=== PATIENT | female | born 1950 | race Caucasian/White ===

== ENCOUNTER 2017-02-16 12:14 | Emergency (ER) | payer OTHER, SELFPAY ==
[2017-02-16 12:19] VITALS: BMI 30.9
--- NOTE | 2017-02-16 12:50 | ED PDOC ---
HPI: Hypertension/Hypotension Time Seen by Provider: 02/16/17 12:21 Chief Complaint (Nursing): High Blood Pressure History Per: Patient, Radio Repairman ([id number]) Additional Complaint(s): Pt. states for the past 2 days she's had a gradual onset bitemporal headache associated with dizziness which is present only when she walks. Pt. states she feels unsteady on her feet when she ambulates due to the dizziness. Also states she checked her BP after developing symptoms which was 178/90 then she rechecked it the following day and it was 170/70. Pt. states she has been compliant with her BP meds (losartan/HCTZ). Denies chest pain, abdominal pain, fever, head injury, numbness, tingling, other injury. Past Medical History Reviewed: Historical Data, Nursing Documentation, Vital Signs Vital Signs: Last Vital Signs Temp 99.4 F 02/16/17 12:18 Pulse 85 02/16/17 12:18 Resp 18 02/16/17 12:18 BP 165/85 H 02/16/17 12:18 Pulse Ox 96 02/16/17 12:18 - Medical History PMH: Diabetes, HTN - Family History Family History: States: No Known Family Hx - Home Medications Home Medications: Ambulatory Orders Medication Instructions Recorded Meclizine HCl 1 - 2 mg PO Q8 PRN #15 tablet 02/16/17 Metoclopramide [Reglan] 10 mg PO Q8 #15 tab 02/16/17 - Allergies Allergies/Adverse Reactions: Allergies Allergy/AdvReac Type Severity Reaction Status Date / Time No Known Allergies Allergy Verified 11/22/14 09:44 Review of Systems ROS Statement: Except As Marked, All Systems Reviewed And Found Negative Neurological: Positive for: Headache, Dizziness Physical Exam - Reviewed Nursing Documentation Reviewed: Yes Vital Signs Reviewed: Yes - Physical Exam Appears: Positive for: Well, Non-toxic, No Acute Distress Head Exam: Positive for: ATRAUMATIC, NORMAL INSPECTION, NORMOCEPHALIC Skin: Positive for: Normal Color, Warm. Negative for: Rash Eye Exam: Positive for: Normal appearance, EOMI, PERRL. Negative for: Nystagmus ENT: Positive for: Normal ENT Inspection Neck: Positive for: Normal, Painless ROM Cardiovascular/Chest: Positive for: Regular Rate, Rhythm Respiratory: Positive for: CNT, Normal Breath Sounds Gastrointestinal/Abdominal: Positive for: Normal Exam, Bowel Sounds, Soft. Negative for: Tenderness Back: Positive for: Normal Inspection Extremity: Positive for: Normal ROM Neurologic/Psych: Positive for: Alert, Oriented, Gait (steady). Negative for: Aphasia, Facial Droop - Laboratory Results Result Diagrams: 02/16/17 12:50 02/16/17 12:50 - ECG ECG: Positive for: Interpreted By Me ECG Rhythm: Positive for: Sinus Rhythm. Negative for: ST/T Changes Rate: 64 O2 Sat by Pulse Oximetry: 96 - Radiology X-Ray: Interpreted by Me (CXR) X-Ray Interpretation: No Acute Disease - Progress ED Course And Treament: Labs ordered. Reglan 10mg IVPB, antivert 50mg PO ordered. CT head w/o contrast ordered. Re-evaluation Time: 16:01 (Pt. reports complete relief of all symptoms. Gait steady unassisted. Repeat neuro exam is non-focal. Case d/w Dr. Choudhary who states if pt. is asymptomaic and feeling better she does not require observation or admission. Pt. informed of plan and agrees. ) Condition: Re-examined, Improved Disposition - Clinical Impression Clinical Impression: Dizziness, Headache - Patient ED Disposition Is Patient to be Admitted: No - Disposition Referrals: Nidhi Guido [Outside] Disposition: Routine/Home Disposition Time: 16:04 Condition: IMPROVED Prescriptions: Meclizine HCl 1 - 2 mg PO Q8 PRN #15 tablet PRN Reason: Dizziness Metoclopramide [Reglan] 10 mg PO Q8 #15 tab Instructions: Acute Headache (ED), Dizziness (ED) Forms: [employer] (Irish) Print Language: MACEDONIAN
[2017-02-16 13:00] LABS: BASO % 0.7 % (0.0-2.0); EOS # 0.3 K/uL (0.0-0.7); EOS % 4.6 % (0.0-4.0); HEMATOCRIT 38.8 % (34.0-47.0); LYMPH # 2.4 K/uL (1.0-4.3); LYMPH % 33.1 % (20.0-40.0); MEAN CELL VOLUME 89.7 fl (81.0-99.0); MEAN CORPUSCULAR HEMOGLOBIN 30.1 pg (27.0-31.0); MEAN CORPUSCULAR HGB CONC 33.6 g/dL (33.0-37.0); MEAN PLATELET VOLUME 6.9 fl (7.2-11.7); MONO # 0.6 K/uL (0.0-0.8); MONO % 7.9 % (0.0-10.0); NEUT % 53.7 % (50.0-75.0); NRBC % 0.1 % (0.0-0.0); RED CELL DISTRIBUTION WIDTH 13.3 % (11.5-14.5); WHITE BLOOD COUNT 7.4 K/uL (4.8-10.8)
[2017-02-16 13:13] LABS: ALB/GLOB RATIO 1.5 (1.0-2.1); ALKALINE PHOSPHATASE 79 U/L (38-126); ALT/SGPT 33 U/L (9-52); AST/SGOT 23 U/L (14-36); BILIRUBIN,TOTAL 0.3 mg/dl (0.2-1.3); BLOOD UREA NITROGEN 17 mg/dl (7-17); CALCIUM 9.7 mg/dL (8.4-10.2); CARBON DIOXIDE 28 mmol/L (22-30); CHLORIDE 104 mmol/L (98-107); GFR AFRICAN-AMERICAN > 60; GLUCOSE,RANDOM 102 mg/dL (65-105); POTASSIUM 3.9 MMOL/L (3.6-5.0); SODIUM 143 mmol/l (132-148); TOTAL PROTEIN 7.3 G/DL (6.3-8.2)
--- NOTE | 2017-02-16 13:17 | RAD ---
HISTORY: elevated BP COMPARISON: Chest x-ray performed 08/01/10, CT chest without and with IV contrast performed 11/22/14 TECHNIQUE: Chest, one view. FINDINGS: Examination limited by habitus. LUNGS: No focal consolidation. Calcified granuloma, left upper lobe. Please note that chest x-ray has limited sensitivity for the detection of pulmonary masses. PLEURA: No significant pleural effusion identified. No definite pneumothorax . CARDIOVASCULAR: Heart size appears top normal. Ectatic aorta. OSSEOUS STRUCTURES: Degenerative changes of the spine and shoulders. VISUALIZED UPPER ABDOMEN: Unremarkable. OTHER FINDINGS: None. IMPRESSION: No focal consolidation, significant pleural effusion, or definite pneumothorax identified.
[2017-02-16 13:33] LABS: URINE BILIRUBIN NEGATIVE (NEGATIVE); URINE BLOOD SMALL (NEGATIVE); URINE COLOR YELLOW (YELLOW); URINE GLUCOSE (UA) NEG (Normal); URINE KETONE NEGATIVE (NEGATIVE); URINE LEUKOCYTE ESTERASE NEG Leu/uL (Negative); URINE PROTEIN NEGATIVE (NEGATIVE); URINE UROBILINOGEN 0.2-1.0 mg/dL (0.2-1.0); WBC URINE < 1 /hpf (0-5)
[2017-02-16 13:35] LABS: RBC URINE 8 /hpf (0-3)
[2017-02-16 14:52] VITALS: BP 121/73; RESP 19; TEMP 98.1
--- NOTE | 2017-02-16 15:38 | CT ---
PROCEDURE: CT HEAD WITHOUT CONTRAST. HISTORY: headache and dizziness COMPARISON: Noncontrast head CT performed 04/19/10 TECHNIQUE: Axial computed tomography images were obtained through the head/brain without intravenous contrast. Radiation dose: Total exam DLP = 860.69 mGy-cm. This CT exam was performed using one or more of the following dose reduction techniques: Automated exposure control, adjustment of the mA and/or kV according to patient size, and/or use of iterative reconstruction technique. FINDINGS: HEMORRHAGE: No intracranial hemorrhage. BRAIN: Diffuse atrophy with prominence of the ventricles and sulci noted. No mass effect or edema. Intracranial atherosclerosis. Mild scattered white matter hypodensities, which are nonspecific, but often seen with chronic microvascular ischemic disease. Please note that MRI with diffusion imaging is more sensitive in the detection of acute ischemic event. VENTRICLES: No hydrocephalus. CALVARIUM: Hyperostosis frontalis. Otherwise unremarkable. PARANASAL SINUSES: Unremarkable as visualized. No significant inflammatory changes. MASTOID AIR CELLS: Unremarkable as visualized. No inflammatory changes. OTHER FINDINGS: None. IMPRESSION: Generalized atrophy. Nonspecific white matter changes.
[2017-02-16 16:04] VITALS: PULSE 64; O2SAT 96
--- NOTE | 2017-02-17 10:20 | CARD ---
APPROVED REPORT EKG Measurement Heart [id number] 140P54 [id number] <Conclusion> Normal sinus rhythm Nonspecific T wave abnormality Abnormal ECG
== END 2017-02-16 16:21 | disposition home or self-care (01) ==
LOC: H.ER 12:14
DX: R42 Dizziness and giddiness (principal); R51 Headache
CPT/HCPCS: 70450; 71010; 80053; 81003; 82948; 84484; 85025; 93005; 99285; J2765

== ENCOUNTER 2017-04-26 16:33 | Emergency (ER) | payer BC, MEDICARE, OTHER ==
[2017-04-26 16:33] VITALS: BMI 30.9
[2017-04-26 16:37] VITALS: TEMP 98.3
[2017-04-26] MEDS ORDERED: Lidocaine 1% w Epi 1:100,000 Inj IJ STA (17:32)
[2017-04-26] MEDS ORDERED: Lidocaine 2% w Epi 1:100,000 Inj IJ ONE (17:37)
[2017-04-26] MEDS ORDERED: Lidocaine 2% w Epi 1:100,000 Inj IJ STA (18:11)
--- NOTE | 2017-04-26 18:33 | ED PDOC ---
HPI: Head Injury Time Seen by Provider: 04/26/17 16:49 Chief Complaint (Nursing): Headache Chief Complaint (Provider): Head injury, fall, laceration History Per: Patient History/Exam Limitations: no limitations Injury Occurred (Timing): Just Before Arrival Patient States: Fell Striking Head Additional Complaint(s): Pt states she was getting up from her chair and lost her balance, hitting her head on glass table. Pt reports headache and feeling dizzy since fall. PT has laceration on forehead. Past Medical History Reviewed: Historical Data, Nursing Documentation, Vital Signs Vital Signs: Last Vital Signs Temp 98.3 F 04/26/17 16:35 Pulse 87 04/26/17 16:35 Resp 16 04/26/17 16:35 BP 119/71 04/26/17 16:35 Pulse Ox 100 04/26/17 16:35 - Medical History PMH: Diabetes, HTN - Surgical History Surgical History: No Surg Hx - Family History Family History: States: No Known Family Hx - Living Arrangements Living Arrangements: With Family - Social History Current smoker - smoking cessation education provided: No - Home Medications Home Medications: Ambulatory Orders Medication Instructions Recorded Meclizine HCl 1 - 2 mg PO Q8 PRN #15 tablet 02/16/17 Metoclopramide [Reglan] 10 mg PO Q8 #15 tab 02/16/17 - Allergies Allergies/Adverse Reactions: Allergies Allergy/AdvReac Type Severity Reaction Status Date / Time No Known Allergies Allergy Verified 11/22/14 09:44 Review of Systems ROS Statement: Except As Marked, All Systems Reviewed And Found Negative Constitutional: Negative for: Fever, Chills Musculoskeletal: Positive for: Neck Pain Skin: Positive for: Other (Laceration, forehead ) Neurological: Positive for: Headache, Dizziness. Negative for: Altered Mental Status Physical Exam - Reviewed Nursing Documentation Reviewed: Yes Vital Signs Reviewed: Yes - Physical Exam Appears: Positive for: Well, Non-toxic, No Acute Distress Head Exam: Positive for: ATRAUMATIC, NORMAL INSPECTION, NORMOCEPHALIC Skin: Positive for: Warm. Negative for: Normal Color (4 cm laceration, linear with slight curve) Eye Exam: Positive for: EOMI, Normal appearance, PERRL ENT: Positive for: Normal ENT Inspection Neck: Positive for: Normal, Painless ROM Cardiovascular/Chest: Positive for: Regular Rate, Rhythm Respiratory: Positive for: Normal Breath Sounds. Negative for: Accessory Muscle Use Gastrointestinal/Abdominal: Positive for: Normal Exam. Negative for: Tenderness Back: Positive for: Normal Inspection Extremity: Positive for: Normal ROM Neurologic/Psych: Positive for: Alert, Oriented. Negative for: Gait (Unable to assess, unsteady at baseline ), Aphasia - Laboratory Results Result Diagrams: 04/26/17 18:32 04/26/17 18:32 - ECG O2 Sat by Pulse Oximetry: 100 Medical Decision Making Medical Decision Making: Head CT and neck CT normal. Labs normal. Pt reports feeling better on re-evaluation. Tylenol given for headache. Disposition - Clinical Impression Clinical Impression: Forehead laceration, Fall - Patient ED Disposition Is Patient to be Admitted: No Counseled Patient/Family Regarding: Diagnosis, Need For Followup - Disposition Disposition: Routine/Home Disposition Time: 20:18 Condition: GOOD Additional Instructions: Do not get sutures wet for 24 hours. Keep clean and dry with antibiotic ointment twice a day. Follow-up with PMD in 2-3 days. Return for any worsening symptoms. Instructions: Care For Your Absorbable Stitches (ED) Forms: [employer] (Croatian) Print Language: YI Laceration - Laceration Repair Forehead Wound Length (In cm): 4 Description Of Wound: Linear Wound Cleansed With: Sterile Saline Anesthesia: Lidocaine 2%, With Epi Wound Examination: Irrigated With Saline, No FB With Wound Exploration Wound Closure: Suture Suture Technique And Material Used: Running, Chromic Wound Complexity: Simple
[2017-04-26 18:37] LABS: HEMATOCRIT 40.4 % (34.0-47.0); MEAN CELL VOLUME 89.8 fl (81.0-99.0); MEAN CORPUSCULAR HEMOGLOBIN 29.4 pg (27.0-31.0); MEAN CORPUSCULAR HGB CONC 32.8 g/dL (33.0-37.0); RED CELL DISTRIBUTION WIDTH 12.9 % (11.5-14.5); WHITE BLOOD COUNT 9.4 K/uL (4.8-10.8)
[2017-04-26 18:45] LABS: PARTIAL THROMBOPLASTIN TIME 37.8 Seconds (25.6-37.1)
[2017-04-26 18:48] LABS: ALB/GLOB RATIO 1.4 (1.0-2.1); ALKALINE PHOSPHATASE 82 U/L (38-126); ALT/SGPT 36 U/L (9-52); AST/SGOT 24 U/L (14-36); BILIRUBIN,TOTAL 0.4 mg/dl (0.2-1.3); BLOOD UREA NITROGEN 18 mg/dl (7-17); CALCIUM 9.4 mg/dL (8.4-10.2); CARBON DIOXIDE 26 mmol/L (22-30); CHLORIDE 107 mmol/L (98-107); GFR AFRICAN-AMERICAN > 60; GLUCOSE,RANDOM 100 mg/dL (65-105); POTASSIUM 3.8 MMOL/L (3.6-5.0); SODIUM 144 mmol/l (132-148); TOTAL PROTEIN 7.6 G/DL (6.3-8.2)
--- NOTE | 2017-04-26 20:05 | CT ---
EXAM: CT Head Without Intravenous Contrast CLINICAL HISTORY: 67 years old, female; Injury or trauma; Fall; Initial encounter; Blunt trauma (contusions or hematomas); Consciousness not specified; Additional info: Head and neck injury, fall off chair TECHNIQUE: Axial computed tomography images of the head/brain without intravenous contrast. All CT scans at this facility use one or more dose reduction techniques, viz.: automated exposure control; ma/kV adjustment per patient size (including targeted exams where dose is matched to indication; i.e. head); or iterative reconstruction technique. Coronal and sagittal reformatted images were created and reviewed. COMPARISON: No relevant prior studies available. FINDINGS: Brain: Unremarkable. No significant white matter disease. No edema. No intracranial mass, mass effect, or midline shift. Ventricles: Unremarkable. No ventriculomegaly. Bones/joints: Unremarkable. No acute fracture. Soft tissues: Frontal extracranial soft tissue swelling and laceration. Sinuses: Unremarkable as visualized. No acute sinusitis. Mastoid air cells: Unremarkable as visualized. No mastoid effusion. IMPRESSION: 1. No acute intracranial abnormality. 2. Remainder of findings as above.
--- NOTE | 2017-04-26 20:10 | CT ---
EXAM: CT Cervical Spine Without Intravenous Contrast CLINICAL HISTORY: 67 years old, female; Injury or trauma; Fall; Initial encounter; Blunt trauma; Additional info: Head and neck injury, fall off chair TECHNIQUE: Axial computed tomography images of the cervical spine without intravenous contrast. All CT scans at this facility use one or more dose reduction techniques, viz.: automated exposure control; ma/kV adjustment per patient size (including targeted exams where dose is matched to indication; i.e. head); or iterative reconstruction technique. Coronal and sagittal reformatted images were created and reviewed. COMPARISON: No relevant prior studies available. FINDINGS: Vertebrae: No lytic or blastic lesions. No acute fracture. Discs/spinal canal/neural foramina: Diffuse cervical spinal degenerative changes, most severe at C4-5 through C6-C7. Soft tissues: Unremarkable. Lung apices: Unremarkable as visualized. IMPRESSION: No acute cervical spine fracture.
[2017-04-26 21:23] VITALS: BP 130/59; PULSE 62; RESP 18; O2SAT 97
--- NOTE | 2017-04-27 17:28 | CARD ---
APPROVED REPORT EKG Measurement Heart [id number] VA 138P62 [id number] <Conclusion> Normal sinus rhythm T wave abnormality, consider anterior ischemia Abnormal ECG
== END 2017-04-26 21:29 | disposition home or self-care (01) ==
LOC: H.ER 16:33
DX: S01.81XA Laceration without foreign body of other part of head, initial encounter (principal); E11.9 Type 2 diabetes mellitus without complications; I10 Essential (primary) hypertension; W07.XXXA Fall from chair, initial encounter

== ENCOUNTER 2017-08-30 14:27 | Emergency (ER) | payer BC, MEDICARE, OTHER ==
[2017-08-30 14:27] VITALS: BMI 30.9
[2017-08-30 15:57] VITALS: TEMP 98.8; O2SAT 98
--- NOTE | 2017-08-30 16:15 | ED PDOC ---
HPI: Hypertension/Hypotension Time Seen by Provider: 08/30/17 15:39 Chief Complaint (Nursing): High Blood Pressure Chief Complaint (Provider): High Blood Pressure History Per: Patient History/Exam Limitations: no limitations Onset/Duration Of Symptoms: Days (x3) Current Symptoms Are (Timing): Still Present Additional Complaint(s): 67 year old female with medical history of non-vertiginous dizziness associated with nausea, headache, mildly to occipital scalp ongoing for 3 days. She denies any chest pain. shortness of breath, focal weakness, blurry vision, vomiting, change in diet or regular activities. She also reports no new swelling to her upper or lower extremities except for her knees bilaterally, due to chronic arthritis. PMD: Evelin Almeida MD Past Medical History Reviewed: Historical Data, Nursing Documentation, Vital Signs Vital Signs: Last Vital Signs Temp 98.8 F 08/30/17 15:53 Pulse 73 08/30/17 15:53 Resp 20 08/30/17 15:53 BP 151/84 H 08/30/17 15:53 Pulse Ox 98 08/30/17 15:53 - Medical History PMH: Diabetes, HTN - Surgical History Surgical History: (x3) - Family History Family History: States: Unknown Family Hx - Social History Current smoker - smoking cessation education provided: No Alcohol: None Drugs: Denies - Home Medications Home Medications: Ambulatory Orders Medication Instructions Recorded Meclizine HCl 1 - 2 mg PO Q8 PRN #15 tablet 02/16/17 Metoclopramide [Reglan] 10 mg PO Q8 #15 tab 02/16/17 - Allergies Allergies/Adverse Reactions: Allergies Allergy/AdvReac Type Severity Reaction Status Date / Time No Known Allergies Allergy Verified 11/22/14 09:44 Review of Systems ROS Statement: Except As Marked, All Systems Reviewed And Found Negative Eyes: Negative for: Vision Change Cardiovascular: Negative for: Chest Pain Respiratory: Negative for: Shortness of Breath Gastrointestinal: Positive for: Nausea. Negative for: Vomiting, Other (change in diet or regular activities) Musculoskeletal: Negative for: Other (upper/lower extremity swelling besides bilateral knees) Neurological: Positive for: Headache (occipital mildly), Dizziness. Negative for: Weakness (focal) Physical Exam - Reviewed Nursing Documentation Reviewed: Yes Vital Signs Reviewed: Yes - Physical Exam Appears: Positive for: Well, No Acute Distress Head Exam: Positive for: ATRAUMATIC, NORMOCEPHALIC Skin: Positive for: Warm, Dry Eye Exam: Positive for: EOMI, PERRL ENT: Negative for: Pharyngeal Erythema, Tonsillar Exudate Neck: Positive for: Painless ROM, Supple Cardiovascular/Chest: Positive for: Regular Rate, Rhythm. Negative for: Murmur Respiratory: Positive for: Normal Breath Sounds. Negative for: Wheezing Gastrointestinal/Abdominal: Positive for: Soft. Negative for: Tenderness Back: Positive for: Normal Inspection. Negative for: Decreased ROM Extremity: Positive for: Pedal Edema (trace), Swelling (bilateral nonpitting knees, consistent with chronic arthritis). Negative for: Deformity Lymphatic: Negative for: Adenopathy Neurologic/Psych: Positive for: Alert. Negative for: Motor/Sensory Deficits - Laboratory Results Result Diagrams: 08/30/17 16:10 08/30/17 16:10 - ECG O2 Sat by Pulse Oximetry: 98 (RA) Pulse Ox Interpretation: Normal Medical Decision Making Medical Decision Making: Initial Impression: Dizziness; Hypertension Differential Diagnosis: Hypertensive encephalopathy; Renal insufficiency; Electrolyte abnormality Initial Plan: * CT head without contrast * EKG * BNP * CMP * Magnesium * Phosphorus * TSH * Troponin I * Urine dipstick * CBC * PTT * PT * Accucheck Time: 1553 --EKG: Normal sinus at 71. Normal QRS with non specific T-wave inversion. No ST changes or depression. --Of note, patient's blood pressure is only slightly elevated in ED. Study Comment : Sex / Age : F / 67Y Creator : Thelma Mcwilliams MD Dictator : Medical Videographer : Behaviour Support Teacher : Thelma Mcwilliams MD Approver2 : Report Date : 08/30/2017 19:19:00 My Comment : [facility] Division of Radiology [address] [place] [address] Tel. no. Patient Name: YONI CHÁVEZ Pt. Address: [address] [place] [address] Rec #: [id number] [place] [address]: Minh LONGORIA, Julia Fox Pt Order Location: [place] : 1950 Female Age: 67 Order #: [id number] Reason for exam: dizziness headache CT Scan HEAD W/O CONTRAST Exam Date: 08/30/17 This imaging exam was performed at [facility] EXAM: CT Head Without Intravenous Contrast CLINICAL HISTORY: 67 years old, female; Pain; Headache; Additional info: Dizziness headache TECHNIQUE: Axial computed tomography images of the head/brain without intravenous contrast. All CT scans at this facility use one or more dose reduction techniques, viz.: automated exposure control; ma/kV adjustment per patient size (including targeted exams where dose is matched to indication; i.e. head); or iterative reconstruction technique. Coronal and sagittal reformatted images were created and reviewed. COMPARISON: No relevant prior studies available. FINDINGS: Brain: No hemorrhage. No significant white matter disease. No edema. Dural calcification. Vascular calcification. Ventricles: No hydrocephalus. Bones: Skull is intact. Hyperostosis frontalis interna. Sinuses: No acute sinusitis. Mastoid air cells: No mastoid effusion. IMPRESSION: No CT evidence of acute intracranial abnormality. Dictated By: Thelma Mcwilliams MD Dictated Date/Time: 08/30/171918 Signed By: Thelma Mcwilliams Date Signed: 1918 Transcribed By: NGOC Transcribe Date/Time : 08/30/171918 SONNAD/SRAVANTHI DW pt findings and plan of care. Low TSH otherwise no abnormalities. Discussed need to f/u with PMD for further investigation of thyroid function. no change in BP medications at this time. Concerns/questions addressed/answered. Stable for dc with followup. Scribe Attestation: Documented by Nubia Ndiaye, acting as a scribe for Julia Wilkinson MD. Provider Scribe Attestation: All medical record entries made by the Scribe were at my direction and personally dictated by me. I have reviewed the chart and agree that the record accurately reflects my personal performance of the history, physical exam, medical decision making, and the department course for this patient. I have also personally directed, reviewed, and agree with the discharge instructions and disposition. Disposition - Clinical Impression Clinical Impression: Low TSH level, Hypertension Counseled Patient/Family Regarding: Studies Performed, Diagnosis - Disposition Referrals: Evelin Almeida MD [Medical Doctor] - 09/01/17 (FOLLOW UP WITH DR FUENTES NEXT WEEK FOR FURTHER EVALUATION YOU WILL NEED MORE THYROID TESTS) Disposition: Routine/Home Disposition Time: 19:37 Condition: STABLE Instructions: High Blood Pressure in Adults, Thyroid Stimulating Hormone Test Print Language: GEORGIAN
[2017-08-30 16:22] LABS: BASO # 0.1 K/uL (0.0-0.2); BASO % 0.8 % (0.0-2.0); EOS # 0.3 K/uL (0.0-0.7); EOS % 3.3 % (0.0-4.0); HEMOGLOBIN 13.7 g/dL (12.0-16.0); LYMPH # 2.6 K/uL (1.0-4.3); LYMPH % 25.7 % (20.0-40.0); MEAN CELL VOLUME 89.4 fl (81.0-99.0); MEAN CORPUSCULAR HEMOGLOBIN 30.2 pg (27.0-31.0); MEAN CORPUSCULAR HGB CONC 33.8 g/dL (33.0-37.0); MEAN PLATELET VOLUME 7.6 fl (7.2-11.7); MONO # 0.8 K/uL (0.0-0.8); MONO % 7.7 % (0.0-10.0); NEUT # 6.3 K/uL (1.8-7.0); NEUT % 62.5 % (50.0-75.0); RBC 4.55 Mil/uL (3.80-5.20)
[2017-08-30 16:28] LABS: PROTHROMBIN TIME 10.7 Seconds (9.8-13.1)
[2017-08-30 16:29] LABS: PARTIAL THROMBOPLASTIN TIME 41.2 Seconds (25.6-37.1)
[2017-08-30 16:38] LABS: ALB/GLOB RATIO 1.3 (1.0-2.1); ALBUMIN 4.4 g/dL (3.5-5.0); ALT/SGPT 33 U/L (9-52); AST/SGOT 27 U/L (14-36); BLOOD UREA NITROGEN 17 mg/dl (7-17); CALCIUM 9.7 mg/dL (8.4-10.2); GFR AFRICAN-AMERICAN > 60; GFR NON-AFRICAN AMERICAN > 60
[2017-08-30 16:48] LABS: B-TYPE NATRIURETIC PEPTIDE 41.4 pg/ml (0-900)
--- NOTE | 2017-08-30 19:19 | CT ---
EXAM: CT Head Without Intravenous Contrast CLINICAL HISTORY: 67 years old, female; Pain; Headache; Additional info: Dizziness headache TECHNIQUE: Axial computed tomography images of the head/brain without intravenous contrast. All CT scans at this facility use one or more dose reduction techniques, viz.: automated exposure control; ma/kV adjustment per patient size (including targeted exams where dose is matched to indication; i.e. head); or iterative reconstruction technique. Coronal and sagittal reformatted images were created and reviewed. COMPARISON: No relevant prior studies available. FINDINGS: Brain: No hemorrhage. No significant white matter disease. No edema. Dural calcification. Vascular calcification. Ventricles: No hydrocephalus. Bones: Skull is intact. Hyperostosis frontalis interna. Sinuses: No acute sinusitis. Mastoid air cells: No mastoid effusion. IMPRESSION: No CT evidence of acute intracranial abnormality.
[2017-08-30 20:31] VITALS: BP 149/87; PULSE 75; RESP 18
--- NOTE | 2017-08-31 10:37 | CARD ---
APPROVED REPORT EKG Measurement Heart [id number] VA 138P59 [id number] <Conclusion> Normal sinus rhythm with sinus arrhythmia Nonspecific T wave abnormality Abnormal ECG
== END 2017-08-30 20:30 | disposition home or self-care (01) ==
LOC: H.ER 14:27
DX: I10 Essential (primary) hypertension (principal); R94.6 Abnormal results of thyroid function studies; E11.9 Type 2 diabetes mellitus without complications

== ENCOUNTER 2018-09-25 12:04 | Emergency (ER) | payer BC, MEDICARE ==
[2018-09-25 12:05] VITALS: BMI 30.9
[2018-09-25 12:28] VITALS: BP 140/78; PULSE 82; RESP 18; TEMP 98.2; O2SAT 98
[2018-09-25] MEDS ORDERED: Sodium Chloride 0.9% 1,000 ML IV STA (14:10)
--- NOTE | 2018-09-25 14:17 | ED PDOC ---
HPI: Headache Time Seen by Provider: 09/25/18 12:36 Chief Complaint (Nursing): Trauma Chief Complaint (Provider): facial trauma History Per: Patient History/Exam Limitations: no limitations Additional Complaint(s): 68 y/o F with hx of HTN, DM-II who was referred by PCP for head CT. Pt states that approximately 1 week ago, she accidentally hit herself in the face with a cane. She felt dazed at the time but denies fall, LOC. She has since been having a LEVY radiating to the back of her head and neck with associated nausea as well some intermittent dizziness that occurs while standing. She has some blurriness in her Right eye since the injury. Last took Tylenol yesterday which improves the headache but it recurs. Further states that she has generalized weakness. Denies weakness on one side of body, slurred speech, gait disturbance. Pt further admits to falling the following day after "tripping over her feet". De nies LOC or head trauma. Past Medical History Reviewed: Historical Data, Nursing Documentation, Vital Signs Vital Signs: Last Vital Signs Temp 98.2 F 09/25/18 12:25 Pulse 82 09/25/18 12:25 Resp 18 09/25/18 12:25 BP 140/78 09/25/18 12:25 Pulse Ox 98 09/25/18 12:25 Primary Care Provider: Comfort Uribe - Medical History PMH: Arthritis, Diabetes, HTN - Surgical History Surgical History: (x3) - Family History Family History: States: Unknown Family Hx - Home Medications Home Medications: Ambulatory Orders Medication Instructions Recorded Meclizine HCl 1 - 2 mg PO Q8 PRN #15 tablet 02/16/17 Metoclopramide [Reglan] 10 mg PO Q8 #15 tab 02/16/17 Ibuprofen [Motrin Tab] 600 mg PO Q6 PRN 7 Days tab 09/25/18 - Allergies Allergies/Adverse Reactions: Allergies Allergy/AdvReac Type Severity Reaction Status Date / Time tramadol Allergy RASH Verified 09/25/18 12:25 Review of Systems Constitutional: Negative for: Fever Eyes: Positive for: Vision Change Neurological: Positive for: Headache, Dizziness. Negative for: Weakness, Nu mbness, Change in Speech Physical Exam - Reviewed Nursing Documentation Reviewed: Yes Vital Signs Reviewed: Yes - Physical Exam Appears: Positive for: Non-toxic Eye Exam: Positive for: EOMI, PERRL, Periorbital swelling (+ Right periorbital ecchymosis with mild swelling) Cardiovascular/Chest: Positive for: Regular Rate, Rhythm Respiratory: Positive for: Normal Breath Sounds Neurological/Psych: Positive for: Awake, Alert, Symmetric/Intact Strength (in B/L upper and lower extremities. 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 Negative for: Lethargic, Listless, Motor/Sensory Deficits, Facial Droop - Laboratory Results Result Diagrams: 09/25/18 14:10 09/25/18 14:10 - ECG O2 Sat by Pulse Oximetry: 98 Medical Decision Making Medical Decision Making: CBC, CMP, Trop EKG Tele Normal Saline 1L IV x 1 Toradol 30mg IV x 1 Reglan 10mg IV x [address] w/o contrast Maxillofacial CT w/o contrast EKG @ 14:39: sinus, HR 67, T wave inversion in anterolateral leads. In comparison to EKG from 08/30/17, T wave inversions have replaced non-specific T wave abnormality. Labs and U/A unremarkable, Trop negative Othostatics: Lying 122/76 HR 69; sittin/81 HR 68; Standing: BP; 141/78, HR [address] w/o contrast: FINDINGS: NASAL BONES: Unremarkable. ORBITS: Unremarkable. PARANASAL SINUSES/ MASTOIDS: Clear. MAXILLA: Unremarkable. MANDIBLE/ TEMPOROMANDIBULAR JOINTS: Unremarkable. SKULL BASE: Unremarkable. TEMPORAL BONES: Middle ears and mastoid grossly unremarkable. OTHER FINDINGS: None. IMPRESSION: No evidence of acute displaced fracture or dislocation. Head CT w/o contrast: FINDINGS: HEMORRHAGE: No intracranial hemorrhage. BRAIN: No mass effect or edema. No atrophy or chronic microvascular ischemic changes. VENTRICLES: Unremarkable. No hydrocephalus. CALVARIUM: Unremarkable. PARANASAL SINUSES: Unremarkable as visualized. No significant inflammatory changes. MASTOID AIR CELLS: Unremarkable as visualized. No inflammatory changes. OTHER FINDINGS: None. IMPRESSION: No evidence of acute intracranial hemorrhage intracranial collection mass effect or midline shift. 16:45: re-assessed, feels significant improvement in headache and neck discomfort. Only having visual blurriness when looks to the Right (+ periorbital edema on Right). Stable for d/c home to follow up with PMD early next week. Disposition - Clinical Impression Clinical Impression: Facial trauma, Headache - Patient ED Disposition Is Patient to be Admitted: No Counseled Patient/Family Regarding: Studies Performed, Diagnosis, Need For Followup - Disposition Referrals: Evelin Almeida MD [Medical Doctor] - Disposition: Routine/Home Disposition Time: 16:50 Condition: IMPROVED Additional Instructions: Follow up with Dr. Almeida early next week for follow up. Take Tylenol or Ibuprofen for headache. Return to ER if you have worsening symptoms. Prescriptions: Ibuprofen [Motrin Tab] 600 mg PO Q6 PRN 7 Days tab PRN Reason: Pain, Moderate (4-7) Instructions: Minor Head Injury (DC), Headache, Adult (DC), Head Injury Observation (DC) Forms: [employer] (Malian) Print Language: GREENLANDIC
[2018-09-25 14:31] LABS: BASO % 0.6 % (0.0-2.0); EOS # 0.3 K/uL (0.0-0.7); EOS % 3.3 % (0.0-4.0); HEMOGLOBIN 13.1 g/dL (12.0-16.0); LYMPH # 2.3 K/uL (1.0-4.3); LYMPH % 30.4 % (20.0-40.0); MEAN CELL VOLUME 84.6 fl (81.0-99.0); MEAN CORPUSCULAR HEMOGLOBIN 27.4 pg (27.0-31.0); MEAN CORPUSCULAR HGB CONC 32.3 g/dL (33.0-37.0); MEAN PLATELET VOLUME 7.7 fl (7.2-11.7); MONO # 0.6 K/uL (0.0-0.8); MONO % 8.3 % (0.0-10.0); NEUT # 4.4 K/uL (1.8-7.0); NEUT % 57.4 % (50.0-75.0); NRBC % 0.1 % (0.0-0.0); RBC 4.8 Mil/uL (3.80-5.20); RED CELL DISTRIBUTION WIDTH 15.4 % (11.5-14.5); WHITE BLOOD COUNT 7.7 K/uL (4.8-10.8)
[2018-09-25 14:34] LABS: ALB/GLOB RATIO 1.4 (1.0-2.1); ALBUMIN 4.5 g/dL (3.5-5.0); BLOOD UREA NITROGEN 15 mg/dl (7-17); CALCIUM 9.1 mg/dL (8.4-10.2); GFR NON-AFRICAN AMERICAN > 60
[2018-09-25 14:40] LABS: ALT/SGPT 25 U/L (9-52); AST/SGOT 36 U/L (14-36)
[2018-09-25 14:53] LABS: SQUAMOUS EPITHIAL 1 /hpf (0-5); URINE BILIRUBIN NEGATIVE (NEGATIVE); URINE BLOOD NEGATIVE (NEGATIVE); URINE CLARITY SLIGHTY-CLOUDY (Clear); URINE COLOR YELLOW (YELLOW); URINE GLUCOSE (UA) NEG (NEGATIVE); URINE LEUKOCYTE ESTERASE NEG Leu/uL (Negative); URINE PROTEIN 30 mg/dL (NEGATIVE); URINE UROBILINOGEN 0.2-1.0 mg/dL (0.2-1.0)
--- NOTE | 2018-09-25 15:42 | CT ---
Date of service: 09/25/2018 PROCEDURE: CT HEAD WITHOUT CONTRAST. HISTORY: head trauma, dizziness, headache COMPARISON: Comparison is made with 08/30/2017 TECHNIQUE: Axial computed tomography images were obtained through the head/brain without intravenous contrast. Radiation dose: Total exam DLP = 831.41 mGy-cm. This CT exam was performed using one or more of the following dose reduction techniques: Automated exposure control, adjustment of the mA and/or kV according to patient size, and/or use of iterative reconstruction technique. FINDINGS: HEMORRHAGE: No intracranial hemorrhage. BRAIN: No mass effect or edema. No atrophy or chronic microvascular ischemic changes. VENTRICLES: Unremarkable. No hydrocephalus. CALVARIUM: Unremarkable. PARANASAL SINUSES: Unremarkable as visualized. No significant inflammatory changes. MASTOID AIR CELLS: Unremarkable as visualized. No inflammatory changes. OTHER FINDINGS: None. IMPRESSION: No evidence of acute intracranial hemorrhage intracranial collection mass effect or midline shift.
--- NOTE | 2018-09-25 15:48 | CT ---
Date of service: 09/25/2018 PROCEDURE: CT MAXILLOFACIAL BONES WITHOUT CONTRAST HISTORY: facial trauma COMPARISON: None available. TECHNIQUE: Contiguous axial CT images of the maxillofacial bones were obtained. Coronal and sagittal reformats were generated. Radiation dose: Total exam DLP = 750.02 mGy-cm. This CT exam was performed using one or more of the following dose reduction techniques: Automated exposure control, adjustment of the mA and/or kV according to patient size, and/or use of iterative reconstruction technique. FINDINGS: NASAL BONES: Unremarkable. ORBITS: Unremarkable. PARANASAL SINUSES/ MASTOIDS: Clear. MAXILLA: Unremarkable. MANDIBLE/ TEMPOROMANDIBULAR JOINTS: Unremarkable. SKULL BASE: Unremarkable. TEMPORAL BONES: Middle ears and mastoid grossly unremarkable. OTHER FINDINGS: None. IMPRESSION: No evidence of acute displaced fracture or dislocation.
--- NOTE | 2018-09-26 15:36 | CARD ---
APPROVED REPORT Date of service: 09/25/2018 EKG Measurement Heart [id number] <Conclusion> Normal sinus rhythm T wave abnormality, consider anterolateral ischemia Abnormal ECG
== END 2018-09-25 17:39 | disposition home or self-care (01) ==
LOC: H.ER 12:04
DX: S09.93XA Unspecified injury of face, initial encounter (principal); R51 Headache; E11.9 Type 2 diabetes mellitus without complications; I10 Essential (primary) hypertension; Z88.8 Allergy status to other drugs, medicaments and biological substances
CPT/HCPCS: 70450; 70486; 80053; 81003; 84484; 85025; 87086; 93005; 96374; 99285; J1885; J7030